=== PATIENT | female | born 1995 | race Caucasian/White ===

== ENCOUNTER 2020-09-15 12:04 | Emergency (ER) | payer BC, SELFPAY ==
[2020-09-15 12:06] VITALS: BP 142/88; PULSE 87; RESP 16; TEMP 36.2; O2SAT 97; BMI 32.2
--- NOTE | 2020-09-15 12:27 | EDS_ITS ---
HPI History of Present Illness Chief Complaint: Nausea/Vomiting Narrative Narrative: 25-year-old female presenting with nausea and vomiting. She states she has been vomiting since Saturday. Patient states that she did a test and it came back positive. She states that she has had 1 live and 2 miscarriages. She is not have any abdominal pain. Denies vaginal bleeding, dysuria. She has not had fever or chills. She states she has had similar episodes in previous pregnancies. She was not able to get a hold of her PERSONNEL MANAGER today. PFSH PFS Medical History (Updated 09/15/20 @ 12:34 by Alex Marcum) Depression Substance abuse Home Medications Effexor 09/15/20 [History Last Taken Unknown] dimenhydrinate [Dramamine] 50 mg PO Q8H 09/15/20 [History Last Taken Unknown] ondansetron HCl [Zofran] 4 mg PO Q8H #9 tab 09/15/20 [Rx Last Taken Unknown] promethazine 25 mg PO Q6H PRN PRN #10 tablet 09/15/20 [Rx Last Taken Unknown] Allergy/AdvReac Type Severity Reaction Status Date / Time No Known Allergies Allergy Verified 09/15/20 12:06 Surgical History (Updated 09/15/20 @ 12:34 by Alex Marcum) Hx of tonsillectomy Social History Smoking Status: Current some day smoker ROS [facility] ED Constitutional Constitutional ED: Denies chills, fever(s) or sweats Eyes Eyes: Denies blurry vision or change in vision ENT ENT ED: Denies ear pain, rhinorrhea or sore throat Cardiovascular Cardiovascular: Denies chest pain, palpitations or racing heartbeat Respiratory/Chest Respiratory/Chest: Denies cough, dyspnea or sputum Gastrointestinal Gastrointestinal: Reports nausea and vomiting; Denies abdominal pain, constipation or diarrhea Genitourinary Genitourinary ED: Denies dysuria, hematuria or urinary frequency Musculoskeletal Musculoskeletal: Denies arthralgias, myalgias or neck pain Integumentary Denies abscess, Abrasions or rash Neurologic Neurologic: Denies headache(s), paresthesias or weakness Psychiatric Psychiatric: Denies anxiety, depression, suicidal ideation or suicidal thoughts Endocrine Endocrinology: Denies polydipsia or polyuria EXAM Physical Exam Const Vital Signs: 09/15/20 12:06 Temperature 97.1 F L Temperature Source Temporal Pulse Rate 87 Respiratory Rate 16 Blood Pressure 142/88 H Blood Pressure Mean 106 Pulse Ox 97 Oxygen Delivery Method Room Air Positive well nourished General Appearance ED: NAD; Negative for pallor HEENT Reports normocephalic, head/scalp atraumatic and moist mucous membranes Eyes PERRL and EOMs intact bilaterally Neck no lymphadenopathy and supple Chest Wall inspection of chest normal and palpation of chest normal Resp normal respiratory effort and clear to auscultation bilaterally Auscultation: Negative for rales, rhonchi or wheezes Cardio regular rate and regular rhythm GI normal to inspection, nondistended, normoactive bowel sounds and non-distended Narrative: Deferred Back/Spine no CVA tenderness General Back: Negative for CVA tenderness Cervical Spine: Negative for cervical spine tenderness Extremity normal to inspection General Extremety ED: Yes edema and tenderness General Extremity: edema Neuro oriented x3 and CN's II-XII intact bilaterally Sensorium / Orientation: alert Motor Exam: strength 5/5 throughout Psych mental status grossly normal Attitude: No agitated Skin no rashes or lesions noted and no wounds General Skin Exam: Negative for jaundice or pallor MDM MDM Lab Data Lab results narrative: 25-year-old female presenting with nausea and vomiting and states she had a positive test at home. She has no abdominal pain. She denies any vaginal bleeding, vaginal discharge, dysuria, hematuria. She states she could not get a hold of her PERSONNEL MANAGER today and needed something for nausea. Patient's vital signs are stable and she is afebrile. She was given oral Zofran and on reevaluation states he has mild nausea but still wishes to leave because her ride is waiting for her. She is given return precautions. S he is given prescriptions for Zofran and Phenergan. Diarrhea Impression: 1. First trimester 2. Nausea and vomiting Discharge Plan Triage Chief Complaint: Nausea/Vomiting ED Provider: Alcides Morales Dx/Rx/DC Orders Instructions: Adapting to : First Trimester, ED Vomiting (Adult) Prescriptions: New ondansetron HCl [Zofran] 4 mg tablet 4 mg PO Q8H Qty: 9 RF: 0 promethazine 25 mg tablet 25 mg PO Q6H PRN PRN (Reason: Nausea) Qty: 10 RF: 0 No Action Dramamine 25 mg Tablet,Chewable 50 mg PO Q8H RF: 0 Effexor RF: 0 Primary Care Provider: Belle Ralph NP Referrals: Belle Ralph DRIVER'S LICENSE REVIEWING OFFICER, DRIVER'S LICENSE REVIEWING OFFICER-C [Primary Care Provider] - Disposition Disposition: Home, self care
[2020-09-15] MEDS: Ondansetron 8 MG Tablet PO (13:15)
[2020-09-15 13:50] VITALS: PULSE 84; RESP 16; O2SAT 98
== END 2020-09-15 13:51 | disposition home or self-care (01) ==
PROVIDERS: Emergency Provider Student in an Organized Health Care Education/Training Program; PCP Nurse Practitioner Family
DX: O21.9 Vomiting of pregnancy, unspecified (principal); O99.331 Smoking (tobacco) complicating pregnancy, first trimester; F17.200 Nicotine dependence, unspecified, uncomplicated; Z3A.00 Weeks of gestation of pregnancy not specified
CPT/HCPCS: 99283

== ENCOUNTER 2020-09-21 22:35 | Emergency (ER) | payer BC, SELFPAY ==
[2020-09-21 22:36] VITALS: BP 137/88; PULSE 88; RESP 15; TEMP 36.6; O2SAT 99; BMI 32.4
--- NOTE | 2020-09-21 22:57 | EX.ED.DYSGE1 ---
HPI History of Present Illness Chief Complaint: Nausea/Vomiting Narrative Narrative: Patient is in the early stages of her . She is having hyperemesis. She was in the emergency department on 520 and given Zofran and Phenergan. She has been using this intermittently. She has a lot of vomiting throughout the day. She is also trying Dramamine. Comes in for further treatment as she wanted to make sure she was not dehydrated. He has her first appointment with her FISH ROE TECHNICIAN tomorrow. Current severity is moderate. She also feels like she is constipated. She took a Dulcolax earlier today with no result. Requesting something to help her move her bowels. PFSH PFSH Medical History Depression Substance abuse Home Medications ondansetron HCl [Zofran] 4 mg PO Q8H #9 tab 09/15/20 [Rx Last Taken Unknown] promethazine 25 mg PO Q6H PRN PRN #10 tablet 09/15/20 [Rx Last Taken Unknown] Allergy/AdvReac Type Severity Reaction Status Date / Time No Known Allergies Allergy Verified 09/21/20 23:38 Surgical History Hx of tonsillectomy Social History Smoking Status: Current some day smoker tobacco type: cigarettes ROS ROS ED ROS Narrative ROS General: Denies fever, chills, sweats Eyes: Denies visual changes, blurred vision, double vision ENT: Denies ear pain, rhinorrhea, sore throat Cardiovascular: Denies chest pain, palpitations, heart racing Respiratory: Denies dyspnea, cough, sputum, dyspnea on exertion, orthopnea,PND GI: See HPI : Denies dysuria, hematuria, frequency Musculoskeletal: Denies myalgias, arthralgias, neck pain, back pain Skin: Denies rash, abscess, abrasions Neuro: Denies headache, weakness, paresthesia Psych: Denies depression, anxiety Endo: Denies polyuria, polydipsia, polyphagia Heme: Denies easy bruising, easy bleeding, lymphadenopathy Allergy: Denies hives, swelling EXAM Physical Exam Narrative Exam Narrative: Vital signs reviewed General: Well-nourished well-developed Head: Normocephalic atraumatic Eyes: Pupils equal round and reactive to light extraocular movements intact ENT: TMs clear no hemotympanum no trauma Neck: Nontender full range of motion Cardiovascular: Regular rate rhythm no murmurs normal S1-S2 Respiratory: No distress clear to auscultation bilaterally chest nontender Abdomen: Soft nontender nondistended normal bowel sounds no masses Back: Nontender no CVA tenderness Extremities: Nontender active range of motion ?4 extremities no trauma Skin: Normal color no trauma Neuro alert oriented cranial nerves II through XII intact normal strength sensation reflexes Const Vital Signs: 09/21/20 22:36 Temperature 97.9 F Temperature Source Temporal Pulse Rate 88 Respiratory Rate 15 Blood Pressure 137/88 H Blood Pressure Mean 104 Pulse Ox 99 Oxygen Delivery Method Room Air MDM MDM MDM Narrative Medical decision making narrative: Patient resting comfortably. Given IV fluids. Metabolic panel obtained. Given a dose of Zofran. [place] better after treatment. Given second dose of Zofran. Given dose of MiraLAX and had a small bowel movement in the emergency department. Will be discharged to follow-up with her family doctor. Metabolic panel shows a very mildly low potassium only at 3.5. I do not feel she is emergently ill. She has an appointment with her FISH ROE TECHNICIAN tomorrow. Lab Data Labs: Laboratory Results - last 24 hr 09/21/20 23:02 Sodium 136 Potassium 3.4 L Chloride 105 Carbon Dioxide 24.0 Anion Gap 7 BUN 5 L Creatinine 0.75 Estim Creat Clear Calc 94.03 Est GFR (MDRD) Af Amer 120 Est GFR (MDRD) Non-Af 99 BUN/Creatinine Ratio 6.7 L Glucose 109 H Calcium 9.4 Discharge Plan Triage Chief Complaint: Nausea/Vomiting ED Provider: Binh Rice Dx/Rx/DC Orders Prescriptions: No Action ondansetron HCl [Zofran] 4 mg tablet 4 mg PO Q8H Qty: 9 RF: 0 promethazine 25 mg tablet 25 mg PO Q6H PRN PRN (Reason: Nausea) Qty: 10 RF: 0 Primary Care Provider: Belle Ralph NP
[2020-09-21] MEDS: Ondansetron 4 MG/2 ML Vial IV (23:03)
[2020-09-21] MEDS: 0.9% Normal Saline 1,000 ML 1000 ML IV (23:03)
[2020-09-21 23:22] LABS: Anion Gap 7 (5-15); BUN 5 mg/dL (7-18); BUN/Creat Ratio 6.7 RATIO (10-20); Calcium,Total 9.4 mg/dL (8.5-10.1); Chloride 105 mmol/L (98-107); Creatinine, Serum 0.75 mg/dL (0.55-1.02); EST Glomerular Filtration Rate 99 mL/min (>60); Est Glom Filt Rate - Afr Amer 120 mL/min (>60); Estimated Creatinine Clearance 94.03 ml/min; Glucose 109 mg/dL (74-106); Potassium 3.4 mmol/L (3.5-5.1); Sodium Level 136 mmol/L (136-145)
[2020-09-22] MEDS: Ondansetron 4 MG/2 ML Vial IV (00:01)
[2020-09-22] MEDS: Polyethylene Glycol 3350 17 GM PACKET PO (00:07)
== END 2020-09-22 00:25 | disposition home or self-care (01) ==
PROVIDERS: Emergency Provider Emergency Medicine; PCP Nurse Practitioner Family
DX: O21.9 Vomiting of pregnancy, unspecified (principal); O99.330 Smoking (tobacco) complicating pregnancy, unspecified trimester; F17.210 Nicotine dependence, cigarettes, uncomplicated; Z3A.00 Weeks of gestation of pregnancy not specified
CPT/HCPCS: 80048; 96374; 96376; 99284; J7030; J2405

== ENCOUNTER → 2020-10-04 09:42 | Outpatient (CLI) | payer BC, SELFPAY ==
[2020-09-21 22:36] VITALS: BMI 32.4
--- NOTE | 2020-10-04 09:49 | US_ITS ---
STUDY: FIRST TRIMESTER OBSTETRICAL ULTRASOUND REASON FOR EXAM: Female, 25 years old SCREENING FOR UNCERTAIN DATES LMP: 08/10/2020. TECHNIQUE: Transvaginal TECHNICAL QUALITY: Adequate. PRIOR ULTRASOUND: None. FINDINGS: There is visualization of a single gestational sac in a normal intrauterine position. The mean sac diameter (MSD) measures 4.25 cm, indicating an estimated gestational age (EGA) of 10 weeks, 0 days. The gestational sac shape is within normal limits. There is a visualized yolk sac. The yolk sac measures 4 mm.. There is visualization of the placenta. Along the anterior wall of the uterus. There is visualization of a live embryo. The crown-rump length (CRL) measures 2.5 cm, indicating an estimated gestational age (EGA) of 9 weeks, 2 days. There is demonstrated cardiac activity with a heart rate of 167 bpm. The estimated gestation age (EGA) by LMP is 7 weeks, 6 days. The estimated date of delivery (RAQUEL) by LMP is 05/17/2021. The estimated gestation age (EGA) by US is 9 weeks, 5 days. The estimated date of delivery (RAQUEL) by US is 05/04/2021. The uterus measures 12.5 cm x 6.7 cm x 5.4 cm. There is no demonstrated uterine fibroid. The cervix is closed. The right ovary measures 2.8 cm x 1.6 cm x 1.8 cm. There is no right ovarian cyst. There is no visualized right adnexal mass or complex lesion. The left ovary measures 2.1 cm x 1.3 cm x 1.2 cm. There is no left ovarian cyst. There is no visualized left adnexal mass or complex lesion. There is no fluid in the cul de sac. US/Transvaginal w/Preg US IMPRESSION: Single live intrauterine gestation with a mean gestational age of 9 weeks and 5 days Electronically Signed: Kai Roper MD at 13:48 EDT , Service support ,
== END ==
PROVIDERS: PCP Nurse Practitioner Family
DX: Z36.87 Encounter for antenatal screening for uncertain dates (principal)
CPT/HCPCS: 76817

== ENCOUNTER → 2020-12-26 16:18 | Outpatient (CLI) | payer BC, SELFPAY ==
--- NOTE | 2020-12-26 16:22 | US_ITS ---
STUDY: SECOND AND THIRD TRIMESTER OBSTETRICAL ULTRASOUND REASON FOR EXAM: Female, 25 years old. Anatomy. LMP: 07/28/2020 TECHNIQUE: Transabdominal and Transvaginal TECHNICAL QUALITY: Adequate. PRIOR ULTRASOUND: 10/04/2020 FINDINGS: There is a single intrauterine fetus. The fetus is in a cephalic presentation. There is demonstrated cardiac activity with a heart rate of 162 bpm. There is a normal amniotic fluid volume. The largest amniotic fluid pocket measures 2.5 cm. The placenta is anterior and right lateral and not low-lying. There are Grade 0 placental changes. The cervix measures 4.3 cm in length. The adnexal regions are not visualized. BIOMETRY: BPD: 4.74 cm: 20 weeks, 2 days HC: 18.9 cm: 21 weeks, 1 days AC: 16.58 cm: 21 weeks, 4 days FL: 3.69 cm: 21 weeks, 5 days CI: 69.03 FL/BPD: 77.95 FL/HC: 19.54 FL/AC: 22.27 HC/AC: 1.14 age by current US: 21 weeks, 2 days. RAQUEL by current US: 05/06/2021. Estimated weight: 4:30 grams, +/- 65 grams, 41 %. age by prior US: 21 weeks, 4 days. RAQUEL by prior US: 05/04/2021. Age by LMP: 19 weeks, 5 days. RAQUEL by LMP: Daily 2021. ANATOMY: Gender: Female Cranium: Normal lateral ventricles. Normal choroid plexus. Normal cerebellum. Normal cisterna magna. Normal face, nose and lips. Chest: Normal 4-chamber heart. Abdomen/Pelvis: Normal diaphragm. Normal stomach. Normal abdominal wall. Normal cord insertion. Normal 3 vessel cord. Normal kidneys. Normal bladder. Spine: Normal cervical spine. Normal thoracic spine. Normal lumbar spine. The sacrum is not well seen secondary to position Extremities: Normal bilateral upper extremities. Normal bilateral lower extremities. US/OB Anatomy Scan IMPRESSION: 1. Live single intrauterine at 21 weeks, 2 days. RAQUEL is 05/06/2026. There is adequate interval growth since prior ultrasound. 2. EFW 430 g. 3. Adequate fluid. 4. Anterior right lateral grade 0 placenta. 5. Vertex presentation. 6. No evidence of abnormality. Electronically Signed: Butch Cole DO at 23:04 EDT Tel [phone], Service support ,
== END ==
DX: Z36.3 Encounter for antenatal screening for malformations (principal)
CPT/HCPCS: 76805; 76830